=== PATIENT | female | born 1980 | race Caucasian/White ===

== ENCOUNTER 2017-03-29 13:05 | Emergency (ER) | payer SELFPAY ==
[~2017-03-29 13:05] MED LIST: CLIN1CAP5 PO; LORT5TAB PO; SULF1TAB47 PO; Z.0.NO CURRENT MEDS
[2017-03-29 13:09] VITALS: BP 174/108; PULSE 94; RESP 20; TEMP 98.3; O2SAT 97
[2017-03-29] MEDS ORDERED: ERYTOIN10 EACH EYE (13:28)
--- NOTE | 2017-03-29 13:40 | PD ---
HPI Chief Complaint: Eye Problems/Injury Time Seen by Provider: 13:25 Travel History International Travel<30 days: No Contact w/Intl Traveler<30days: No Traveled to known affect area: No History of Present Illness HPI 36 year-old female presents to the emergency room for evaluation of bilateral eye drainage, itchiness, and redness for the past 2 days. Patient states it is extremely itchy and she believes she is scratching her eyes at night. She denies any changes in visual acuity, photophobia or foreign body sensation. States it started in the right and has since moved to the left. She put over- the-counter topical drops to help a little bit. Has not taken anything else for symptoms. States she wakes up with her eyes crusted shut. PFSH Past Medical History Anxiety: Yes Hypertension: Yes (DURING ) ?: Not LMP: WEEK AGO Past Surgical History Section: Yes Social History Alcohol Use: Yes (SOCIAL) Tobacco Use: No Substance Use: No Allergies-Medications (Allergen,Severity, Reaction): Coded Allergies: No Known Allergies (Verified , 05/31/12) Reported Meds & Prescriptions Reported Meds & Active Scripts Active Erythromycin Opth Oint 5 Mg/Gm Oint 1 Applic EACH EYE QID Review of Systems Except as stated in HPI: all other systems reviewed are Neg Physical Exam Narrative GENERAL: Well-nourished, well-developed female in no acute distress. Afebrile. Ambulatory. SKIN: Focused skin assessment warm/dry. HEAD: Normocephalic. EYES: PERRL, EOMI without pain. No obvious discharge. Mild to moderate injection of the right eye and mild injection of the left eye. Mild chemosis in the right eye. No scleral icterus. Bilateral periorbital ecchymosis. Visual acuity is 20/20 bilaterally. Positive red light reflex bilaterally. NECK: Supple, trachea midline. No JVD or lymphadenopathy. CARDIOVASCULAR: Regular rate and rhythm without murmurs, gallops, or rubs. RESPIRATORY: Breath sounds equal bilaterally. No accessory muscle use. GASTROINTESTINAL: Abdomen soft, non-tender, nondistended. MUSCULOSKELETAL: No cyanosis, or edema. BACK: Nontender without obvious deformity. No CVA tenderness. Data Data Last Documented VS Vital Signs Date Time Temp Pulse Resp B/P (MAP) Pulse Ox O2 Delivery O2 Flow Rate FiO2 03/29/17 13:09 98.3 94 20 174/108 (344) 97 MDM Medical Decision Making Medical Screen Exam Complete: Yes Emergency Medical Condition: Yes Medical Record Reviewed: Yes Differential Diagnosis Foreign body, corneal abrasion, conjunctivitis Narrative Course 36-year-old female presents to the emergency room for evaluation of bilateral eye redness, drainage, and itching for the past 2 days. Patient denies any other sick symptoms. Vital signs stable. Physical exam is reassuring. Patient has 20/20 vision bilaterally. There is mild injection of the left and moderate injection and chemosis in the right eye. There is bilateral periorbital ecchymosis, likely secondary to how much patient has been rubbing her eyes. No significant drainage. EOMI without pain. No photophobia. She was informed that it is likely allergic conjunctivitis given history of physical exam and it was recommended she take [id number] allergy medications. She will be discharged with prescription for erythromycin eye ointment and told to follow-up with an speech therapist technician as needed or return for worsening symptoms. She understands and agrees to plan. Diagnosis Primary Impression: Conjunctivitis Qualified Codes: H10.33 - Unspecified acute conjunctivitis, bilateral Referrals: Primary Care Physician Additional Instructions: Erythromycin ointment as directed for 5-7 days. Take [id number] Claritin, Benadryl, or Zyrtec to help with symptoms. Follow-up with a primary care physician. Return to the emergency room for worsening symptoms. Med/Other Pt SpecificInfo: Prescription(s) given Scripts Erythromycin Opth Oint (Erythromycin Opth Oint) 5 Mg/Gm Oint 1 APPLIC EACH EYE QID for Infection, #1 TUBE 0 Refills Prov: Aixa Sweet MD 03/29/17 Disposition: 01 DISCHARGE HOME Condition: Stable Maddie Singh Mar 29, 2017 13:40
== END 2017-03-29 13:59 | disposition home or self-care (01) ==
LOC: PHEFT 13:05
DX: H10.33 Unspecified acute conjunctivitis, bilateral (principal)
CPT/HCPCS: 99283